=== PATIENT | female | born 1980 | race African-American/Black ===

== ENCOUNTER 2024-08-20 16:21 | Day surgery (SDC) | payer OTHER, SELFPAY ==
[2024-08-20] VITALS (9 sets, daily range): BP systolic 112–138; BP diastolic 63–90
[2024-08-20] MEDS: ZOFRAN 4 MG IV (11:50)
[2024-08-20] MEDS: PEPCID 20 MG IV (11:50)
[2024-08-20] MEDS: NSS 1000 IV (11:50)
[2024-08-20 11:55] LABS: % Basophils 0.4 % (0-2); % Immature Granulocytes 0.4 % (0-0.5); % Lymphocytes 13.6 % (20.5-51.1); % Monocytes 5.5 % (1.7-9.3); % Neutrophils 79.1 % (42.2-75.2); Absolute Eosinophils 0.1 10^3/uL (0-0.7); Absolute Lymphocytes 1.5 10^3/uL (1.2-3.4); Absolute Monocytes 0.6 10^3/uL (0.1-0.6); Absolute Neutrophils 8.7 10^3/uL (1.4-6.5); Hematocrit 37.4 % (37.0-47.0); Hemoglobin 12.9 g/dL (12.0-16.0); Mean Corp Hgb Conc. 34.5 g/dL (33.0-37.0); Mean Corpuscular Hgb 26.8 pg (27.0-31.0); Mean Corpuscular Volume 77.6 fL (81.0-99.0); Mean Platelet Volume 9.1 fL (7.4-10.4); Nucleated Red Blood Cells % 0 %; Platelet Count 292 10^3/uL (130-400); Red Blood Cell Count 4.82 10^6/uL (4.20-5.40); Red Cell Dist. Width 13.1 % (11.5-14.5)
[2024-08-20 12:06] LABS: HCG, Serum Qualitative Screen Negative
--- NOTE | 2024-08-20 12:17 | ED.GENMED ---
History of Present Illness
General
Chief Complaint: Abdominal Pain
Source: patient
Exam Limitations: none
Time Seen by Provider: 08/20/24 11:26
Nursing documentation reviewed up to this point in time: agreed with
History of Present Illness
History of Present Illness:
44-year-old female presenting to the emergency department today with concerns of lower abdominal starting this morning describes it as somewhat severe some radiation to the epigastrium. Describes it mainly as crampy and sharp. Has had some nausea
and vomiting. Denies any changes in bowel movements.
Review of Systems
Review of Systems
Allergies reviewed?: Yes
All Other Systems: ROS reviewed and negative except as documented in HPI and ROS
Phy Exam
Physical Exam
Physical Exam:
GENERAL: Alert , in no apparent distress
EYE: pupils equal and reactive
NECK: Supple, no significant adenopathy.
ENT: o/p clr, mmm.
CARDIAC: Regular rate and rhythm .
LUNGS: Clear breath sounds bilaterally, no acute respiratory distress,
Abd: vague diffuse abdominal pain
NEUROLOGICAL: Alert and oriented, no focal neuro deficits
SKIN: Warm and dry, skin intact.
MUSCULOSKELETAL: No edema, well perfused.
PSYCH: Normal and appropriate interaction.
Course
Orders/Labs/Results
Orders:
Orders
08/20/24 11:30
Test Result ONCE
08/20/24 11:34
0.9% Sodium Chloride 1000 ml [Nss] 1,000 ml IV BOLUS
Famotidine [Pepcid] 20 mg IV NOW STA
Ondansetron Injectable [Zofran] 4 mg IV NOW STA
08/20/24 11:35
CT Abd/Pel (IV only)-DH only Urgent
Comment:
Reason For Exam: diffuse abd pain, TTP
Test Result ONCE
08/20/24 11:48
Complete Blood Count/With Diff Urgent
Comprehensive Metabolic Panel Urgent
HCG, Serum Qualitative Screen Urgent
Comment: Notify provider if positive test present
Lipase Urgent
08/20/24 12:33
Urinalysis Reflex To Culture Urgent
Date Specimen was Collected: 08/20/24
Time Specimen was Collected: 12:29
08/20/24 13:04
Ketorolac [Toradol] 15 mg .ROUTE .STK-MED ONE
08/20/24 13:05
Ketorolac [Toradol] 15 mg IV NOW STA
08/20/24 Dinner
Regular
08/20/24 15:25
Piperacillin/Tazo 3.375 Gram [Zosyn] 3.375 gram in 50 ml IV NOW
08/20/24 15:38
Morphine Sulfate 4 mg IV NOW STA
08/20/24 15:51
Dexamethasone Sod Phosphate [Decadron] 20 mg .ROUTE .STK-MED ONE
Lidocaine HCl/Pf [Xylocaine-Mpf 1% Vial] 50 mg .ROUTE .STK-MED ONE
Rocuronium [place] [Rocuronium] 50 mg .ROUTE .STK-MED ONE
08/20/24 15:52
Fentanyl Citrate/Pf [Sublimaze] 100 mcg .ROUTE .STK-MED ONE
Midazolam HCl [Versed] 2 mg .ROUTE .STK-MED ONE
Ondansetron Injectable [Zofran] 4 mg .ROUTE .STK-MED ONE
Propofol [Diprivan] 20 ml .ROUTE .STK-MED
08/20/24 16:19
Code Status As Directed
Resuscitation Status: Full Code
Acetaminophen [Tylenol] 650 mg PO Q4HPRN PRN
HYDROmorphone [Dilaudid] 0.5 mg IV Q2HPRN PRN
HYDROmorphone [Dilaudid] 1 mg IV Q2HPRN PRN
Ketorolac [Toradol] 10 mg IV Q6HPRN PRN
Ondansetron Injectable [Zofran] 4 mg IV Q6HPRN PRN
Oxycodone [Roxicodone] 10 mg PO Q4HPRN PRN
Oxycodone [Roxicodone] 5 mg PO Q4HPRN PRN
08/20/24 16:20
Admit Patient As Directed
Co-Sign Provider:
Level of Care: Post Proc/Surg Recovery
Assign to:: Medical/Surgical
Physician / Group: Faith
Diagnosis: Acute appendicitis
Reason for Overnight Stay: Standard of Care
Activity As Directed
Activity Level: Out of Bed-Early Mobility
Anti-embolism (EDGAR) Hose As Directed
Type: Thigh high
Intake/ Output As Directed
Frequency: Per unit guidelines
Vital Signs As Directed
Frequency: Per unit guidelines
PRN Pain Medication Management As Directed
May give lesser potent ordered pain med per pt: Yes
preference::
Protocol:: Medication orders for pain may be administered in a
manner that supports deferring to patient preference
when the pt is:
- Requesting an ordered lesser potent pain medication.
Least to most potent pain medications are defined
as: acetaminophen < NSAID < tramadol < opioids
(morphine, oxycodone, hydromorphone).
- Requesting a lesser dose of the same medication IF
ORDERED.
- Requesting a less intrusive route of administration
if both routes are prescribed by the provider (PO <
IV).
08/20/24 16:21
Pneumatic Compression Sleeves As Directed
Type: Knee high
Rx Incentive Spirometry [RESP] Routine
Frequency: q1h while awake
# of times per hour: 10
DX Deep Vein Thrombosis Video Routine
08/20/24 16:22
Bupivacaine 0.5%Pf/Epinephrin [Sensorcain-Mpf Epi 0.5%-0.0005] 30 ml .ROUTE .STK-MED ONE
08/20/24 16:45
HYDROmorphone [Dilaudid] 0.25 mg IV PACU-Q5MPRN PRN
HYDROmorphone [Dilaudid] 0.5 mg IV PACU-Q5MPRN PRN
Meperidine [Demerol] 12.5 mg IV PACU-Q5MPRN PRN
Normosol (Mult Electrolytes) [Normosol-R/Plasmalyte-A] 1,000 ml IV PER PROTOCOL
Ondansetron Injectable [Zofran] 4 mg IV PACU-ONCEPRN PRN
Prochlorperazine [Compazine] 5 mg IV PACU-ONCEPRN PRN
Notify MD As Directed
Notify physician if: for SDS patients with known or suspected sleep obstructive sleep apnea, monitor in the
PACU.
Notify MD for any apneic/desaturation episodes
O2 Therapy [RESP] Urgent
Titrate/Wean O2 to maintain O2 sat greater than (%): 92
Special Instructions: -Provide supplemental oxygen to achieve O2 sat of 92% or greater.
-After 15 min, may wean O2 and discontinue if patient is able to maintain O2 sat of 92%
or greater during recovery period.
If patient is a discharge home, without oxygen therapy, notify anestheiologist if
unable to maintain O2 SAT of 92% or greater on room air for MD clearance.
08/20/24 18:00
Enoxaparin Sodium [Lovenox] 40 mg SC QPM
Abnormal Lab Results
08/20/24 08/20/24
11:48 12:33
WBC 11.0 H 10^3/uL
(4.8-10.8)
MCV 77.6 L fL
(81.0-99.0)
MCH 26.8 L pg
(27.0-31.0)
Absolute Neuts (auto) 8.7 H 10^3/uL
(1.4-6.5)
Neutrophils % 79.1 H %
(42.2-75.2)
Lymphocytes % 13.6 L %
(20.5-51.1)
Glucose 109 H mg/dl
(70-99)
Urine Ketones 1+ A
(Negative)
08/20/24 11:48
08/20/24 11:48
Vital Signs
Initial and Last Documented VS:
Initial Vital Signs
Temp Pulse Resp BP Pulse Ox
98.1 F 76 18 132/89 100
08/20/24 11:07 08/20/24 11:07 08/20/24 11:07 08/20/24 11:07 08/20/24 11:07
Last Documented Vital Signs
Temp Pulse Resp BP Pulse Ox
98.1 F 70 24 138/90 100
08/20/24 11:07 08/20/24 13:00 08/20/24 13:00 08/20/24 13:00 08/20/24 13:00
MDM/Problems Addressed
MDM/Problems Addressed:
44-year-old female presenting to the emergency department today with concerns of lower abdominal pain starting this morning. Moderate discomfort to palpation throughout the abdomen. Plan for CT scan for further assessment. CT scan showing
uncomplicated appendicitis. Patient given dose of Zosyn otherwise Case discussed with general surgery who will take her directly to the OR. Stable throughout ER stay.
*Critical Care Note
Total Time (30-74mins, 75-104mins- exclusive of procedures): Not Applicable
ED Attending Note
-
Portions of this chart may have been created with voice recognition software.� Occasional wrong word or��sound alike� substitutions may have occurred due to the inherent limitations of voice recognition software.
Discharge Plan
Departure
Patient Disposition: Admit
Date of Disposition: 08/20/24
Time of Disposition: 17:00
Admit to: Med/Surg
Admit to doctor: Faith
Presentation/result/management discussed w/ accepting MD/DO: [facility]
Patient with high blood pressure during this ER visit?: No
Condition: Good
Covid-19: Not Applicable
Discharge Problem:
Acute appendicitis
Interventions
Interventions:
*Risk Screen - Suicide Last Done: 08/20/24 11:07
*General Assessment Last Done: 08/20/24 11:07
*Neglect/Abuse Screening Last Done: 08/20/24 11:07
*ED- Fall Risk Assessment Last Done: 08/20/24 15:00
*ED COVID-19 Vaccine History Last Done: 08/20/24 12:00
*Nursing Disposition Last Done: 08/20/24 16:26
RP-Mivvhu-Cvltezulka Assessment Last Done: 08/20/24 12:00
Discharge Date and Time
Discharge Date/Time: 08/20/24 16:27
[2024-08-20 12:39] LABS: ALT (SGPT) 27 U/L (0-35); AST (SGOT) 28 U/L (14-36); Albumin 4.9 g/dl (3.5-5.0); Alkaline Phosphatase 71 U/L (38-126); Blood Urea Nitrogen 12 mg/dl (7-17); Calcium 9.8 mg/dl (8.4-10.2); Carbon Dioxide 24 mmol/L (22-30); Chloride 102 mmol/L (98-107); Glucose 109 mg/dl (70-99); Potassium 4.1 mmol/L (3.5-5.1); Sodium 138 mmol/L (135-145); Total Bilirubin 0.5 mg/dl (0.2-1.3); Total Protein 7.9 g/dl (6.3-8.2); eGFR > 60.00
[2024-08-20] MEDS: TORADOL 15 MG IV (13:06)
[2024-08-20 13:24] LABS: Urine Albumin Negative (Neg - Trace); Urine Bilirubin Negative (Negative); Urine Character Clear (Clear); Urine Color Yellow; Urine Glucose Negative (Negative); Urine Ketone 1+ (Negative); Urine Leukocyte Negative (Negative); Urine Nitrite Negative (Negative); Urine Occult Blood Negative (Negative); Urine Urobilinogen Negative (Neg - 1+)
[2024-08-20 13:40] LABS: Lipase 43 U/L (23-300)
[2024-08-20] MEDS: MORPHINE SULFATE 4 MG IV (15:43)
[2024-08-20] MEDS: ZOSYN 50 IV (15:43)
--- NOTE | 2024-08-20 16:25 | CON.GS ---
Consultation
-
Requesting Provider: Markos
Performing Provider: Faith
Reason for Consultation: Acute appendicitis
Medical History
-
Chief Complaint: Abd pain
History of Present Illness:
44F with acute onset abdominal pain. Localized to lower abdomen, began this am. Seems to be radiating up toward epigastrium. Described as crampy, sharp, progressive. A/w n/v. Denies changes to urine or stool. Denies f/c.
Past Medical History
Past Medical History: Reviewed & Noncontributory
Past Surgical History: Reviewed & Noncontributory
Social History
Tobacco: Non-Smoker
Personal: Partner
Living: With Family
Family History
Family History: Reviewed & Noncontributory
Allergies / Home Medications
Allergy/AdvReac Type Severity Reaction Status Date / Time
No Known Allergies Allergy Verified 08/20/24 11:07
�Medication �Instructions �Recorded �Confirmed �Type
Lactobac no.2-Bifidobac no.1-S. 1 cap PO DAILY 08/20/24 08/20/24 History
thermo 112.5 billion cell capsule
(Visbiome)
ashwagandha extract 500 mg capsule 500 mg PO DAILY 08/20/24 08/20/24 History
calcium carbonate (Tums) 900 mg PO DAILYPRN PRN gerd 08/20/24 08/20/24 History
levothyroxine 150 mcg tablet 150 mcg PO DAILY 08/20/24 08/20/24 History
(Synthroid)
spironolactone 50 mg tablet 50 mg PO HS 08/20/24 08/20/24 History
therapeutic multivitamin 1 tab PO DAILY 08/20/24 08/20/24 History
Review of Systems
-
A 10 point review of systems was completed, and was negative except as per HPI.
Physical Exam
Vital Signs
Temp Pulse Resp BP Pulse Ox
98.1 F 70 24 138/90 100
08/20/24 11:07 08/20/24 13:00 08/20/24 13:00 08/20/24 13:00 08/20/24 13:00
Lab Results
08/20/24 11:48
08/20/24 11:48
WBC 11.0 10^3/uL (4.8-10.8) H 08/20/24 11:48
Hgb 12.9 g/dL (12.0-16.0) 08/20/24 11:48
Hct 37.4 % (37.0-47.0) 08/20/24 11:48
Plt Count 292 10^3/uL (130-400) 08/20/24 11:48
Abs Immat Gran (auto) 0.0 10^3/uL (0-0.05) 08/20/24 11:48
Neutrophils % 79.1 % (42.2-75.2) H 08/20/24 11:48
Physical Exam
General: Well Developed, Well Nourished and No Apparent Distress
GI: Soft and Tender (ttp to rlq)
Skin: Warm and Dry
Neuro: AO x 3
Psych: Calm
Data Reviewed
-
CT Scan: Image Personally Visualized and interpreted, Report Reviewed by me, Discussed with Physician and Discussed with Patient
Labs: Labs Reviewed by me
Assessment / Plan
-
44F with acute appendicitis
AFVSS, ttp to rlq
Mild leukocytosis
CT c/w acute appendicitis without evidence of perforation
Plan:
OCTOR for lap appy
IV abx
SCDs
--- NOTE | 2024-08-20 17:35 | W.IMMPOSTOP ---
Surgical Immed Post Op Note
-
Primary Surgeon: Faith
Pre-op Diagnosis: Acute appendicitis
Post-op Diagnosis: Same
Procedure Performed: Laparoscopic appendectomy
Anesthesia Type: GETA
Specimen / Cultures: Appendix
Estimated Blood Loss: 5cc
Complications: None immediate
Operative Findings: Inflamed non perforated appendix with hyperemia and pallor but no gangrene or turgidity, minimal turbid fluid in the pelvis suctioned
--- NOTE | 2024-08-20 17:36 | OR.RPT ---
Operative Report
Operative Report
Primary Surgeon: Faith
Pre-op Diagnosis: Acute appendicitis
Post-op Diagnosis: Acute appendicitis, umbilical hernia
Procedure Performed: Laparoscopic appendectomy, primary repair umbilical hernia
Anesthesia Type: GETA
Specimen / Cultures: Appendix
Estimated Blood Loss: 5cc
Complications: None immediate
Operative Findings: Inflamed non perforated appendix with hyperemia and pallor but no gangrene or turgidity, minimal turbid fluid in the pelvis suctioned
Date of Surgery: 08/20/24
Indications: This 44F developed right lower quadrant abdominal pain and on workup was found to have acute appendicitis. Laparoscopic appendectomy was elected.
Description of procedure: The patient was placed on the operating table in the supine position. General anesthesia was induced. A time-out was completed verifying correct patient, procedure, site, positioning, and special equipment prior to
beginning this procedure. An orogastric tube was placed. The abdomen was prepped and draped in the usual sterile fashion. A stab incision was made in left upper quadrant and the Veress needle was inserted. Proper position was confirmed by aspiration
and saline meniscus test. The abdomen was insufflated with carbon dioxide to a pressure of 12 mmHg. The patient tolerated insufflation well.
A 5mm optical trocar was then inserted at the left lower quadrant. The laparoscope was inserted and the abdomen inspected. No injuries from initial trocar placement or Veress needle insertion were noted. Additional trocars were then inserted in the
following locations: a 12-mm trocar at the umbilicus through the existing umbilical defect and a 5-mm trocar midline in the suprapubic space. The abdomen was inspected and no abnormalities were found. The table was placed in the Trendelenburg
position with the right side up. The tip of the appendix was gently grasped with an atraumatic grasper and retracted toward the patient�s feet and abdominal wall. This maneuver exposed the appendiceal blood supply which was controlled with the
voyant device. Following this, a laparoscopic linear cutting stapler with a 45mm bustillos load was deployed and used to transect the appendix at its base. The appendix was placed in an endoscopic retrieval bag, removed through the umbilical port, and
passed off the table as a specimen.
We then turned our attention to the staple line, which was noted to be hemostatic. Scant turbid fluid was suctioned from the pelvis. The umbilical trocar site was closed at the fascial level laparoscopically with 2-0 PDS under direct vision.
Secondary trocars were removed under direct vision and noted to be hemostatic. The laparoscope was withdrawn and the abdomen was allowed to collapse. The skin was closed with subcuticular sutures of 4-0 monocryl and topical skin adhesive. The
orogastric tube was removed.
The patient tolerated the procedure well and was taken to the postanesthesia care unit in stable condition.
--- NOTE | 2024-08-20 17:37 | W.DS.TRANS ---
DC Summary - Natural Science Manager
-
Discharge Instructions:
Discharge Diagnosis/Procedures Acute appendicitis, laparoscopic appendectoym,
umbilical hernia repair
Diet No restrictions
Activity No strenuous activity
Driving Restrictions No driving for 24 hours
Bathing Restrictions OK to Shower
Wound Care Allow skin glue to flake off on its own.
Instructions: Appendectomy - Discharge instructions
Stand-Alone Forms:
Changes to Home Medications: No
Discharge Medications:
DC Medications w/original date entered in R&V
Lactobac no.2-Bifidobac no.1-S. thermo 112.5 billion cell capsule (Visbiome) 1 cap PO DAILY 08/20/24
ashwagandha extract 500 mg capsule 500 mg PO DAILY 08/20/24
calcium carbonate (Tums) 900 mg PO DAILYPRN PRN gerd 08/20/24
levothyroxine 150 mcg tablet (Synthroid) 150 mcg PO DAILY 08/20/24
oxycodone 5 mg tablet 5 - 10 mg (1 - 2 x 5 mg) PO Q4HPRN PRN moderate to severe pain #12 tabs 08/20/24
spironolactone 50 mg tablet 50 mg PO HS 08/20/24
therapeutic multivitamin 1 tab PO DAILY 08/20/24
Home Medication Changes
Pending Results: No
== END 2024-08-20 19:13 | disposition home or self-care (01) ==
LOC: SDS 16:21
PROVIDERS: Physician Assistant; ATTENDING PHYSICIAN Surgery; EMERGENCY PHYSICIAN Emergency Medicine
DX: K35.80 Unspecified acute appendicitis (principal); K42.9 Umbilical hernia without obstruction or gangrene; R10.31 Right lower quadrant pain
CPT/HCPCS: 44970; 88304; 74177; 80053; 81003; 83690; 84703; 85025; 96361; 96365; 96375; 99284; C1776; Q9967